=== PATIENT | male | born 1970 | race Caucasian/White ===

== ENCOUNTER 2017-09-28 08:03 | Inpatient (IN) ==
--- NOTE | 2017-09-27 16:20 | Discharge Summary ---
<Alexandra Shaffer E - Last Filed: 09/27/17 16:18> Date of Encounter: 09/27/17 - Discharge Diagnosis (1) Osteoarthritis of right hip Priority: Primary Status: Chronic Qualifiers: Osteoarthritis type: unspecified Qualified Code(s): M16.11 - Unilateral primary osteoarthritis, right hip (2) CARINA (obstructive sleep apnea) Priority: Secondary Status: Chronic (3) COPD (chronic obstructive pulmonary disease) Priority: Secondary Status: Chronic Qualifiers: COPD type: unspecified COPD Qualified Code(s): J44.9 - Chronic obstructive pulmonary disease, unspecified (4) HLD (hyperlipidemia) Priority: Secondary Status: Chronic Qualifiers: Hyperlipidemia type: unspecified Qualified Code(s): E78.5 - Hyperlipidemia , unspecified (5) GERD (gastroesophageal reflux disease) Priority: Secondary Status: Chronic Qualifiers: Esophagitis presence: esophagitis presence not specified Qualified Code(s) : K21.9 - Gastro-esophageal reflux disease without esophagitis (6) Bipolar disorder Priority: Secondary Status: Chronic Qualifiers: Active/Remission status: remission status unspecified Qualified Code(s): F31.9 - Bipolar disorder, unspecified (7) HTN (hypertension) Priority: Secondary Status: Chronic Qualifiers: Hypertension type: unspecified Qualified Code(s): I10 - Essential (primary ) hypertension (8) Hyperglycemia Priority: Secondary Status: Chronic - Discharge Medications Home Medications: Aspirin Enteric Coated [Aspirin EC] 325 mg PO DAILY 21 Days #21 tablet. [Rx] HYDROcodone/Acet 5/325 mg [Marcellus 5-325 mg] 1 tab PO Q4-6H PRN 7 Days #35 tab [Rx] Alprazolam [Xanax] 2 mg PO BID 09/28/17 [History] Aripiprazole [Abilify] 15 mg PO DAILY 09/28/17 [History] Atorvastatin [Lipitor] 40 mg PO HS 09/28/17 [History] Esomeprazole Magnesium [Nexium] 40 mg PO DAILY 09/28/17 [History] Fenofibrate Nanocrystallized [Tricor] 145 mg PO DAILY 09/28/17 [History] Meloxicam 15 mg PO DAILY 09/28/17 [History] Multivit-Min/FA/Lycopen/Lutein [Centrum Silver Tablet] 1 tab PO DAILY 09/28/17 [ History] OXcarbazepine [Oxcarbazepine] 300 mg PO BID 09/28/17 [History] OXcarbazepine [Trileptal] 150 mg PO HS 09/28/17 [History] Quetiapine Fumarate [Seroquel] 400 mg PO HS 09/28/17 [History] Topiramate [Topamax] 100 mg PO HS 09/28/17 [History] cloNIDine HCl [CloNIDine HCl] 0.1 mg PO HS 09/28/17 [History] rOPINIRole [Requip] 3 mg PO HS 09/28/17 [History] Allergies/Adverse Reactions: 3 Allergy/AdvReac Type Severity Reaction Status Date / Time acetaminophen [From Percocet] AdvReac Vomiting Verified 09/28/17 08:37 Oxycodone [From Percocet] AdvReac Vomiting Verified 09/28/17 08:37 Primary care physician: Kassie Cadet, - Patient Status Disposition: Home, Self-Care Condition: Good - Discharge Instructions Follow Up With: Kassie Cadet MD [Primary Care Provider] - - Hospital Course Hospital course: Mr. Sanford is a 46 year old male - Time Spent with Patient Total time spent providing and/or coordinating discharge services: <Pelon Velez - Last Filed: 09/29/17 07:11> Date of Encounter: 09/29/17 Time of Encounter: 07:11 - Discharge Diagnosis (1) Status post total hip replacement, right Priority: Primary Status: Acute (2) Osteoarthritis of right hip Priority: Primary Status: Chronic Qualifiers: Osteoarthritis type: unspecified Qualified Code(s): M16.11 - Unilateral primary osteoarthritis, right hip (3) COPD (chronic obstructive pulmonary disease) Priority: Secondary Status: Chronic Qualifiers: COPD type: unspecified COPD Qualified Code(s): J44.9 - Chronic obstructive pulmonary disease, unspecified (4) HLD (hyperlipidemia) Priority: Secondary Status: Chronic Qualifiers: Hyperlipidemia type: unspecified Qualified Code(s): E78.5 - Hyperlipidemia , unspecified (5) GERD (gastroesophageal reflux disease) Priority: Secondary Status: Chronic Qualifiers: Esophagitis presence: esophagitis presence not specified Qualified Code(s) : K21.9 - Gastro-esophageal reflux disease without esophagitis (6) Bipolar disorder Priority: Secondary Status: Chronic Qualifiers: Active/Remission status: remission status unspecified Qualified Code(s): F31.9 - Bipolar disorder, unspecified (7) HTN (hypertension) Priority: Secondary Status: Chronic Qualifiers: Hypertension type: unspecified Qualified Code(s): I10 - Essential (primary ) hypertension (8) Hyperglycemia Priority: Secondary Status: Chronic (9) CARINA (obstructive sleep apnea) Priority: Secondary Status: Chronic (10) Acute blood loss anemia Priority: Primary Status: Acute Primary care physician: Kassie Cadet, - Patient Status Functional capacity at discharge: uses cane/walker Overall status at discharge: patient is progressing back to baseline - Hospital Course Hospital course: Mr. Sanford is a 46 year old male Status post right total hip replacement The patient had an uneventful postoperative course. They received antibiotics and physical therapy and were discharged in stable condition. There will follow -up in the office in 2 weeks. - Time Spent with Patient Total time spent providing and/or coordinating discharge services:
[2017-09-28] MEDS ORDERED: Lidocaine -MPF 1% 2 ML VIAL ID ONE (08:16)
[2017-09-28] MEDS ORDERED: Albuterol 2.5 MG/3 ML NEBULIZER IH ONE (08:16)
[2017-09-28] MEDS ORDERED: CeFAZolin Syr 2,000MG/20 ML 2,000 MG/20 ML SYRINGE IVPB ONE (08:16)
--- NOTE | 2017-09-28 08:17 | Anesthesia Evaluation PreOp ---
Date of Encounter: 09/28/17 Time of Encounter: 08:14 - Past History Planned Operation: Right Robotic Total Hip Cardiac History: HTN, Hyperlipidemia Pulmonary History: Former smoker (Quit 09/13/2017), COPD, CARINA Dx BUCCARO History: Other (Schizophrenia, Bipolar) Other Medical History: GERD Anesthesia History: No Prior Anesthetic Complications, Past Anesthesia (Right Elbow, Lino. Knees, Appy, nodules removed from back, chest and neck) Alcohol Use: none Drug use: none Medications and Allergies Aspirin Enteric Coated [Aspirin EC] 325 mg PO DAILY 21 Days #21 tablet. [Rx] HYDROcodone/Acet 5/325 mg [Stilwell 5-325 mg] 1 tab PO Q4-6H PRN 7 Days #35 tab [Rx] 3 Allergy/AdvReac Type Severity Reaction Status Date / Time acetaminophen [From Percocet] AdvReac Vomiting Verified 09/16/17 13:52 Oxycodone [From Percocet] AdvReac Vomiting Verified 09/16/17 13:52 - Meds/Allergy Pre-op Review Medications Reviewed: Yes Allergies Reviewed: Yes Beta Blockers on Current Med List: No Anesthesia Results - Labs Laboratory Tests 09/16/17 09/16/17 09/16/17 14:27 14:27 14:27 WBC 8.2 Hgb 13.6 Hct 41.6 Plt Count 362 INR 1.0 Sodium 140 Potassium 4.0 Chloride 110 H Carbon Dioxide 24 BUN 18 Creatinine 1.12 - Imaging EKG: report reviewed ( SR) Anesthesia Exam O2 Sat Height 1.93 m Height 1.93 m Height 1.93 m Height 1.93 m Weight 101.151 kg Weight 101.151 kg Weight 101.151 kg Weight 101.151 kg O2 Sat by Pulse Oximetry 96 O2 Sat by Pulse Oximetry 96 O2 Sat by Pulse Oximetry 96 Vital Signs Temp Pulse Resp BP Pulse Ox 97.7 F 77 18 112/75 96 09/28/17 08:19 09/28/17 08:19 09/28/17 08:19 09/28/17 08:19 09/28/17 08:19 Height: 6'4'' Weight: 223# NPO (# of Hours): > 8 hrs Pain Scale: 0 Pain Scale Used: Numeric (1 - 10) - HEENT Pupil (Motor): Pupils equal, EOMI Mallampati: III Teeth: Normal Denture Type: Upper: Partial Oral Opening: Greater than 3 - BUCCARO LOC: Oriented BUCCARO Motor: Normal RUE, Normal LUE, Normal RLE, Normal LLE, Normal Face BUCCARO Sensory: Normal: RUE, LUE, RLE, LLE, Face - Cardiac Rhythm: Regular Murmur: None JVD: No Carotid Bruit: No - Pulmonary Breath Sounds: bilateral Clear Respiratory Effort: Symmetrical Anesthesia Assess/Plan ASA Score: 3 Modified Meera Scale for Level of Consciousness: Cooperative, oriented, and tranquil Anesthetic Plan: General, Regional Autologous Blood: Yes Monitoring Plan: Standard Monitors Recovery Plan: PACU
--- NOTE | 2017-09-28 08:20 | History & Physical Report ---
Date of Encounter: 09/28/17 Time of Encounter: 08:19 24 Hour HP Update - Instructions Instructions: If the History and Physical is less than 30 days old and was completed prior to A.M. admission and or procedure and has NOT been updated on calendar day of procedure please complete this update prior to performing procedure. - Update Patient reports changes in Medical Condition: No Changes in examination, assessment, or condition: No Changes in Medication: No Preop tests/diagnostics Reviewed: Yes Surgery Remains Indicated: Yes Consent for Planned Operative Procedure(s) Verified: Yes - Pre-Operative Checklist Preoperative Checklist Indicated: No Prophylactic Antibiotic Ordered: Yes Is VTE Prophylaxis Indicated?: Yes
[2017-09-28] MEDS: Ringers Solution, Lactated 1,000 ML IVC SCH ×2 (08:26→10:26)
[2017-09-28] MEDS ORDERED: ROPIVACAINE HCL/PF 0.5% 30 ML VIAL ONE (08:32)
[2017-09-28] MEDS ORDERED: Acetaminophen IV 1,000 MG/100 ML INFUS..BTL ONE (08:32)
[2017-09-28] MEDS ORDERED: CloNIDine Patch 0.1 MG PATCH (WEEKLY) ONE (08:39)
[2017-09-28] MEDS ORDERED: Gabapentin 300 MG CAPSULE ONE (08:39)
[2017-09-28] MEDS ORDERED: Ethanol\\Acetic Acid\\Na Ace\\Ben 1,000 ML IRRIG.SOLN IR ONE (08:42)
[2017-09-28] MEDS ORDERED: *HR* Labetalol 20 MG/4 ML SYRINGE IVP PRN (09:05)
[2017-09-28] MEDS ORDERED: *HR* Promethazine 25 MG/ML VIAL IVP PRN (09:05)
--- NOTE | 2017-09-28 09:09 | Anesthesia Procedures ---
Date of Encounter: 09/28/17 Time of Encounter: 08:55 Procedures: Anesthesia - Nerve Block Procedure Date: 09/28/17 Time: 08:55 Allergies/Adv Reactions: percocet Pre-op Diagnosis: right hip OA Surgical Procedure: right JENNI robotic Checklist: Correct Patient Identifier, Correct procedure, History checked Correct side: Right Blood Thinner: No Monitor Applied: EKG, BP, Pulse Oximetry Supplemental Oxygen via Nasal Cannula (L/min): 2 Sedation: Versed (mg): 2 Sedation: Fentanyl (mcg): 100 Indication: Post Op Analgesia Pre-op Neuro Deficits: No Block Type: Other (fascia iliaca) Catheter placed: No Sterile Technique: Yes Ultrasound used: Yes Anatomy identified: Yes Visual spread of Local: Yes Neuro Stimulation: No Blood on Needle Aspiration: No Smooth Injection of Local: Yes Pain with Injection of Local: No Prep: Chlorhexadine Needle: 22 x 50 mm Stimuplex Local: Ropivacaine (0.25% + 10mg decadron) Volume (cc): 60 Number of Attempts: 1 Complications: None/effective block Vitals: Vital Signs/O2 Sat/Glucose, Most Recent Temp Pulse Resp BP Pulse Ox 97.7 F 68 16 111/73 96 09/28/17 08:20 09/28/17 08:55 09/28/17 08:55 09/28/17 08:55 09/28/17 08:55
[2017-09-28] MEDS ORDERED: Povidone-Iodine 5% 60 ML, Sodium Chloride IRRigation 500 ML IR ONE (10:10)
--- NOTE | 2017-09-28 10:25 | Orthopedic Operative Note ---
Date of procedure: 09/28/17 Pre-op diagnosis: Right hip arthritis Post-op diagnosis: same Procedure: Procedure: Right Total Hip Replacment robotic-assisted Estimated blood loss: .00 cc Hardware: Metal and polyethylene replacement. Wilson DM Cup: 64 cup Femoral size 9 stem Head: 8head with Netta Procedural Notes: Grade 4 arthritic changes femoral head acetabular socket, procedure performed with robotic assistance. Operative procedure: The patient was brought to the operating room and placed on the operating room table. After general anesthesia was administered the patient was placed in the lateral decubitus position with the operative leg up. All pressure points were padded appropriately and the head was stabilized in the neutral position. The operative extremity was prepped and draped in the sterile surgical fashion patient received IV antibiotic prior to skin incision. 3 Steinmann pins were placed in the iliac crest 3 cm proximal to the anterior superior iliac spine this was for the robotic-assisted sensor. This was done through a small 2 cm incision. A standard posterior approach is made to the operative hip, the incision was made through the skin and subcutaneous tissue hemostasis was obtained with Bovie cautery. Using careful sharp dissection the fascia was identified and incised exposing the external rotators. The femoral checkpoint was placed leg length was measured at this time utilizing robotic assistance. Patient 4 millimeters longer on the operative side by CT scan. The external rotators were released off the greater trochanter and tagged with #2 FiberWire suture. The capsule was T'd open and the hip was brought into internal rotation. Patient noted to have grade 4 arthritic changes femoral head. The femoral neck cut was made at the appropriate level roughly Xmm proximal to the lesser trochanter aced on preoperative templating. An anterior capsulotomy was performed for the anterior retractor. Soft tissues removed from the acetabulum. Patient noted to have grade 4 arthritic changes acetabulum. The acetabulum checkpoint was placed confirmed. The acetabulum was then mapped with robotic assistance. Based on the preoperative plan the acetabulum was reamed in one step with a 63 reamer. The 64 acetabulum was impacted with robotic assistance and 40 degrees of abduction and 11 degrees of anteversion. The hip was brought back in to internal rotation and prepared with the dust box worker followed by the canal finder followed by the reaming process to a size 9/ 10 broaching process in 20 degrees anteversion. It was broached up to the appropriate size 9. Trial reduction revealed leg lengths close to normal. The femoral implant was impacted in place in 20 degrees of anteversion. Trial reduction found the hip to be stable with 8 head and Netta. The trials were removed and the real implants were impacted in place. The hip was reduced, patient had robotic confirmed leg length of 10 mm longer than the contralateral side. The hip had excellent stability with forward flexion to 90 degrees adduction of 30 degrees and internal rotation of 60 degrees. The hip had no shuck. The hips after 2 minutes with a Betadine saline solution. It was irrigated out with 2 L of pulse irrigation. The checkpoints were removed, Steinmann pins were removed. The hip was closed by the PA. The deep tissue was irrigated and closed deep with #1 PDS suture superficially with 0 PDS suture and skin was closed with Dermabond and zip tie. The patient was placed in a sterile dressing and abduction pillow. The patient was extubated and transferred to the recovery room in stable condition. Anesthesia: YASH Surgeon: Pelon Velez Was there an painter assistant present: No Estimated blood loss (cc): 300 Condition: stable Disposition: PACU
[2017-09-28] MEDS ORDERED: Ketamine *HR* 500 MG/10 ML MDV ONE (10:26)
[2017-09-28] MEDS ORDERED: Lidocaine -MPF 2% 2 ML VIAL ONE (10:26)
[2017-09-28] MEDS ORDERED: *HR* Propofol 200 MG/20 ML VIAL IVP ONE (10:26)
[2017-09-28] MEDS ORDERED: Dexamethasone 4 MG/ML VIAL ONE (10:26)
[2017-09-28] MEDS ORDERED: *HR* Succinylcholine 200 MG/10 ML VIAL IVP ONE (10:26)
[2017-09-28] MEDS ORDERED: *HR* FentaNYL (PF) 100 MCG/2 ML VIAL ONE (10:26)
[2017-09-28] MEDS ORDERED: Ondansetron 4 MG/2 ML VIAL ONE (10:26)
[2017-09-28] MEDS ORDERED: Ketorolac 30 MG/ML VIAL ONE (10:26)
[2017-09-28] MEDS ORDERED: *HR* Magnesium Sulfate 1 GM/2 ML VIAL ONE (10:26)
[2017-09-28] MEDS ORDERED: Lidocaine -MPF 4% 5 ML AMPUL ONE (10:26)
[2017-09-28] MEDS ORDERED: *HR* HYDROmorphone 2 MG/ML SYRINGE ONE (10:26)
[2017-09-28] MEDS ORDERED: *HR* Midazolam HCl 2 MG/2 ML VIAL ONE (10:26)
[2017-09-28 11:19] LABS: Hematocrit 35.4 % (37.5-50.1); Hemoglobin 11.6 g/dL (12.9-16.9)
[2017-09-28] MEDS: *HR* HYDROmorphone (PF) 1 MG/ML SYRINGE IVP PRN ×2 (11:24→11:30)
[2017-09-28] MEDS ORDERED: Ringers Solution, Lactated 1,000 ML IVC SCH (11:59)
[2017-09-28] MEDS ORDERED: Sennosides 8.6 MG TABLET PO PRN (11:59)
[2017-09-28] MEDS ORDERED: MOM Conc 10 ML UD.LIQ PO PRN (11:59)
[2017-09-28] MEDS ORDERED: Temazepam 15 MG CAPSULE PO PRN (11:59)
[2017-09-28] MEDS ORDERED: Naloxone 0.4 MG/ML INJ IVP PRN (11:59)
[2017-09-28] MEDS ORDERED: *HR* HYDROcodone/Acet 5/325 mg TABLET PO PRN (11:59)
[2017-09-28] MEDS ORDERED: traMADol 50 MG TABLET PO PRN (11:59)
[2017-09-28] MEDS ORDERED: Ondansetron 4 MG/2 ML VIAL IVP PRN (11:59)
[2017-09-28] MEDS: Multivit/Ca/Min/Fe/FA 1 TAB TABLET PO SCH (12:44)
[2017-09-28] MEDS: *HR* HYDROcodone/Acet 10/325 mg TABLET PO PRN (12:44)
[2017-09-28] MEDS: *HR* Enoxaparin 30 MG/0.3 ML SYRINGE SQ SCH (16:44)
[2017-09-28] MEDS: Ascorbic Acid 500 MG TABLET PO SCH (16:44)
[2017-09-28] MEDS: CeFAZolin Premix DUPLEX 2,000 MG/50 ML BAG IVPB SCH ×2 (16:45→23:20)
[2017-09-28] MEDS ORDERED: *HR* Enoxaparin 30 MG/0.3 ML SYRINGE SQ SCH (18:00)
--- NOTE | 2017-09-28 18:37 | Anesthesia Evaluation Post Op ---
Date of Encounter: 09/28/17 Time of Encounter: 18:36 - Vital Signs Vital Signs: Vital Signs/O2 Sat, Most Current Temp Pulse Resp BP Pulse Ox 98.0 F 75 16 124/83 96 09/28/17 14:28 09/28/17 14:28 09/28/17 14:28 09/28/17 14:28 09/28/17 14:28 - Lungs Lungs: Clear Ascult./Percussion - Airway Airway: Non-obstructed - Cardiovascular Regular Rate - Mental Status Mental Status: Alert & Oriented, Answers Appropriately - Pain Pain Scale: 3 Pain Scale used: Numeric (1 - 10) - Nausea Vomiting Nausea Vomiting: Not Present - Hydration Hydration: Tolerates oral liquids, Able to void
[2017-09-28] MEDS: ALPRAZolam 1 MG TABLET PO SCH (20:36)
[2017-09-28] MEDS ORDERED: OXcarbazepine 150 MG TABLET PO SCH (21:00)
[2017-09-28] MEDS ORDERED: cloNIDine HCl 0.1 MG TABLET PO SCH (21:00)
[2017-09-28] MEDS ORDERED: Topiramate 100 MG TABLET PO SCH (21:00)
[2017-09-28] MEDS: OXcarbazepine 150 MG TABLET PO SCH (21:17)
[2017-09-29] MEDS: *HR* HYDROcodone/Acet 10/325 mg TABLET PO PRN ×3 (01:00→13:32)
[2017-09-29] MEDS: *HR* Enoxaparin 30 MG/0.3 ML SYRINGE SQ SCH (05:14)
[2017-09-29 06:29] LABS: Hematocrit 30.2 % (37.5-50.1); Hemoglobin 10.2 g/dL (12.9-16.9)
[2017-09-29 06:31] LABS: BUN/Creatinine Ratio 19 (6-26); Blood Urea Nitrogen 19 mg/dL (6-20); Calcium 8.9 mg/dL (8.6-10.3); Carbon Dioxide 24 mEq/L (23-29); Chloride 107 mEq/L (98-107); Glucose 127 mg/dL (70-105); Osmolality,Calculated 288 (280-300); Sodium 137 mEq/L (136-145); eGFR For African Americans > 60 (> 60); eGFR For Non-African Americans > 60 (> 60)
--- NOTE | 2017-09-29 07:12 | Orthopedics Progress Note ---
Date of Encounter: 09/29/17 Time of Encounter: 07:11 - Assessment and Plan (1) Status post total hip replacement, right Current Visit: Yes Status: Acute (2) Osteoarthritis of right hip Current Visit: No Status: Chronic Qualifiers: Osteoarthritis type: unspecified Qualified Code(s): M16.11 - Unilateral primary osteoarthritis, right hip (3) COPD (chronic obstructive pulmonary disease) Current Visit: No Status: Chronic Qualifiers: COPD type: unspecified COPD Qualified Code(s): J44.9 - Chronic obstructive pulmonary disease, unspecified (4) HLD (hyperlipidemia) Current Visit: No Status: Chronic Qualifiers: Hyperlipidemia type: unspecified Qualified Code(s): E78.5 - Hyperlipidemia , unspecified (5) GERD (gastroesophageal reflux disease) Current Visit: No Status: Chronic Qualifiers: Esophagitis presence: esophagitis presence not specified Qualified Code(s) : K21.9 - Gastro-esophageal reflux disease without esophagitis (6) Bipolar disorder Current Visit: No Status: Chronic Qualifiers: Active/Remission status: remission status unspecified Qualified Code(s): F31.9 - Bipolar disorder, unspecified (7) HTN (hypertension) Current Visit: No Status: Chronic Qualifiers: Hypertension type: unspecified Qualified Code(s): I10 - Essential (primary ) hypertension (8) Hyperglycemia Current Visit: No Status: Chronic (9) CARINA (obstructive sleep apnea) Current Visit: No Status: Chronic (10) Acute blood loss anemia Current Visit: Yes Status: Acute Subjective Interval history: Patient was seen this morning doing well without complaints. Afebrile vital signs stable. Operative extremity: Neurovascularly intact Dressing clean dry and intact Calves nontender Assessment and plan: Continue with postoperative care Hematocrit 30 discharged today Objective Vital signs: Vital Signs Temp Pulse Resp BP Pulse Ox 09/29/17 07:00 97.6 F 82 18 109/71 96 09/29/17 03:52 98.4 F 83 17 136/80 96 09/28/17 23:46 98.2 F 80 17 130/80 96 09/28/17 19:49 98.5 F 81 17 131/80 96 09/28/17 14:28 98.0 F 75 16 124/83 96 09/28/17 13:40 98.3 F 68 95 09/28/17 12:54 98.0 F 74 16 134/89 97 09/28/17 12:13 98.1 F 72 16 120/88 95 09/28/17 12:01 62 18 127/73 94 09/28/17 11:54 98.4 F 64 18 117/95 93 09/28/17 11:44 64 18 122/94 93 09/28/17 11:34 66 18 120/93 94 09/28/17 11:24 98.5 F 70 16 140/90 95 09/28/17 11:14 73 16 128/83 94 09/28/17 11:04 70 16 143/88 94 09/28/17 10:54 97.9 F 72 16 129/83 96 09/28/17 09:10 67 16 103/78 98 09/28/17 08:55 68 16 111/73 96 09/28/17 08:42 77 18 111/77 98 09/28/17 08:20 97.7 F 77 18 112/75 96 09/28/17 08:19 97.7 F 77 18 112/75 96 Intake and Output 09/28/17 09/28/17 09/29/17 15:59 23:59 07:59 Intake Total 1000 / 1000 100 / 100 100 / 100 Output Total 300 / 300 500 / 500 Balance 700 / 700 -400 / -400 100 / 100 Intake: IV Fluids 1000 / 1000 50 / 50 50 / 50 Lactated Ringers 1,000 ML @ 75 1000 / 1000 mls/hr IVC .[id number] KEYLA Rx#: [id number] Ancef Premix DUPLEX 2,000 mg In 50 / 50 50 / 50 50 ml @ 100 mls/hr IVPB Q8HR KEYLA Rx#:[id number] Oral 50 / 50 50 / 50 Output: Urine 500 / 500 Estimated Blood Loss 300 / 300 Other: Meal Dinner Percent of Meal Consumed 100% Weight 101.151 kg - Labs CBC & BMP: 09/29/17 05:29 09/29/17 05:29 Labs: Abnormal lab results Hgb 10.2 g/dL (12.9-16.9) L 09/29/17 05:29 Hct 30.2 % (37.5-50.1) L 09/29/17 05:29 Glucose 127 mg/dL (70-105) H 09/29/17 05:29 - VTE Documentation of Mechanical Device: Venous foot pump, device Consult Discharge Plan - Plan Referrals: Kassie Cadet MD [Primary Care Provider] -
[2017-09-29] MEDS: OXcarbazepine 150 MG TABLET PO SCH (08:09)
[2017-09-29] MEDS: ALPRAZolam 1 MG TABLET PO SCH (08:09)
[2017-09-29] MEDS: Multivit/Ca/Min/Fe/FA 1 TAB TABLET PO SCH (08:09)
[2017-09-29] MEDS: Ascorbic Acid 500 MG TABLET PO SCH (08:09)
[2017-09-29] MEDS ORDERED: Multivit/Ca/Min/Fe/FA 1 TAB TABLET PO SCH (09:00)
[2017-09-29] MEDS ORDERED: Fenofibrate 54 MG TABLET PO SCH (09:00)
[2017-09-29] MEDS ORDERED: ARIPiprazole 5 MG TABLET PO SCH (09:00)
[2017-09-29 11:48] VITALS: BP 105/68
== END 2017-09-29 13:45 | disposition home or self-care (01) | DRG 470 ==
LOC: SAMDAY 08:03 → 3NENU 11:50
PROVIDERS: ADMIT Orthopaedic Surgery; ATTEND Orthopaedic Surgery